=== PATIENT | male | born 1985 | race Caucasian/White ===

== ENCOUNTER 2017-07-25 09:07 | Emergency (ER) | payer MEDICAID ==
[~2017-07-25] VITALS: Ht 175.3 cm; Wt 127.0 kg
[2017-07-25 09:20] VITALS: BP 137/93; Ht 175.3 cm; Wt 127.0 kg
== END 2017-07-25 10:21 | disposition home or self-care (01) ==
LOC: ED 09:07
DX: K04.7 Periapical abscess without sinus (principal); I10 Essential (primary) hypertension

== ENCOUNTER 2017-09-05 21:38 | Emergency (ER) | payer OTHER ==
[~2017-09-05] VITALS: Ht 175.3 cm; Wt 127.0 kg
[2017-09-05 21:42] VITALS: Ht 175.3 cm; Wt 127.0 kg
[2017-09-06 00:30] VITALS: BP 164/115
== END 2017-09-06 00:30 | disposition home or self-care (01) ==
LOC: ED 21:38
DX: K04.7 Periapical abscess without sinus (principal); I10 Essential (primary) hypertension